=== PATIENT | female | born 1990 | race Caucasian/White ===

== ENCOUNTER 2016-10-12 18:23 | Emergency (ER) | payer BC ==
[2016-10-12 18:40] VITALS: BP 142/92
[2016-10-12 19:53] LABS: APPEARANCE,URINE CLEAR; BILIRUBIN,URINE NEGATIVE (NEGATIVE); GLUCOSE, URINE NEGATIVE (NEGATIVE); KETONES,URINE NEGATIVE (NEGATIVE); LEUKOCYTE ESTERASE,URINE NEGATIVE (NEGATIVE); NITRITE,URINE NEGATIVE (NEGATIVE); PROTEIN,URINE NEGATIVE (NEGATIVE); URINE SPECIFIC GRAVITY 1.001; UROBILINOGEN,URINE NEGATIVE mg/dL (<2.0)
--- NOTE | 2016-10-12 20:05 | ER Document Report ---
ED General - General Chief Complaint: Flank Pain Stated Complaint: BLOOD IN URINE,ABDOMINAL PAIN Time Seen by Provider: 10/12/16 19:18 Information source: Patient Notes: Patient presents with blood in the urine. She states earlier today she had approximate 1 hour of severe right flank pain that made her nauseous as well. Nothing made his pain better or worse. It did radiate from the back to the front. It was severe constant and sharp. She states the pain disappeared on the right home and has not returned. However she did notice some blood in her urine when she got home so she came to the emergency department for evaluation. No previous history of kidney stones. She states she does not have any chronic medical conditions. - Related Data Allergies/Adverse Reactions: No Known Allergies Allergy (Unverified 10/12/16 18:37) Past Medical History - General Information source: Patient - Social History Smoking Status: Never Smoker Cigarette use (# per day): No Frequency of alcohol use: Occasional Drug Abuse: None Family History: Reviewed & Not Pertinent Patient has suicidal ideation: No Patient has homicidal ideation: No Renal/ Medical History: Denies: Hx Peritoneal Dialysis Review of Systems - Review of Systems Constitutional: denies: Chills, Fever Cardiovascular: denies: Chest pain, Palpitations Respiratory: denies: Cough, Short of breath -: Yes All other systems reviewed and negative Physical Exam - Vital signs Vitals: Temp Pulse Resp BP Pulse Ox 99.2 F 89 18 142/92 H 100 10/12/16 18:36 10/12/16 18:36 10/12/16 18:36 10/12/16 18:36 10/12/16 18:36 Interpretation: Hypertensive - General General appearance: Appears well, Alert - HEENT Head: Normocephalic, Atraumatic Eyes: Normal Pupils: PERRL - Respiratory Respiratory status: No respiratory distress Chest status: Nontender Breath sounds: Normal Chest palpation: Normal - Cardiovascular Rhythm: Regular Heart sounds: Normal auscultation Murmur: No - Abdominal Inspection: Normal Distension: No distension Bowel sounds: Normal Tenderness: Nontender Organomegaly: No organomegaly - Back Back: Normal, Nontender - Extremities General upper extremity: Normal inspection, Nontender, Normal color, Normal ROM , Normal temperature General lower extremity: Normal inspection, Nontender, Normal color, Normal ROM , Normal temperature, Normal weight bearing. No: Maria Elena's sign - Neurological Neuro grossly intact: Yes Cognition: Normal Orientation: AAOx4 [employer] Coma Scale Eye Opening: Spontaneous Evaristo Coma Scale Verbal: Oriented Evaristo Coma Scale Motor: Obeys Commands Evaristo Coma Scale Total: 15 Speech: Normal Motor strength normal: LUE, RUE, LLE, RLE Sensory: Normal - Psychological Associated symptoms: Normal affect, Normal mood - Skin Skin Temperature: Warm Skin Moisture: Dry Skin Color: Normal Course - Vital Signs Vital signs: Temp Pulse Resp BP Pulse Ox 99.2 F 89 18 142/92 H 100 10/12/16 18:36 10/12/16 18:36 10/12/16 18:36 10/12/16 18:36 10/12/16 18:36 - Laboratory Laboratory results interpreted by me: 10/12/16 19:44 Urine Blood LARGE H Discharge - Discharge Clinical Impression: Hematuria Condition: Stable Disposition: HOME, SELF-CARE Instructions: Hematuria ([facility]) Additional Instructions: Please call your family physician as soon as possible to arrange follow-up.
== END 2016-10-12 20:05 | disposition home or self-care (01) ==
LOC: ER 18:23
DX: R31.0 Gross hematuria (principal); R10.9 Unspecified abdominal pain; R11.0 Nausea
CPT/HCPCS: 81001; 81025; 99284